=== PATIENT | female | born 1960 | race Caucasian/White ===

== ENCOUNTER 2021-04-19 01:55 | Inpatient (IN) | payer OTHER ==
[~2021-04-19] VITALS: Ht 154.9 cm; Wt 98.8 kg
[2021-04-19] VITALS (29 sets, daily range): BP systolic 84–174; BP diastolic 7–98; PULSE 56–135; TEMP 97.5–98.4
[~2021-04-19 01:55] MED LIST: NO HOME MEDICATIONS; ULTRAM50 MG PO
[2021-04-19 02:41] LABS: BASO % 0.4 % (0.0-2.0); EOS # 0.2 K/mm3 (0.0-0.7); EOS % 2.1 % (0-4.0); GRAN # 5.2 K/mm3 (1.4-6.5); GRAN % 57.8 % (42.2-75.2); HEMATOCRIT 39.8 % (37.0-47.0); HEMOGLOBIN 12.4 g/dl (12.5-16.0); LYMPH % 33.2 % (20.0-51.0); MEAN CELL VOLUME 83 fl (80.0-100.0); MEAN CORPUSCULAR HEMOGLOBIN 26 pg (27.0-31.0); MEAN CORPUSCULAR HGB CONC 31 g/dl (33.0-37.0); MEAN PLATELET VOLUME 10.7 fl (7.4-10.4); MONO # 0.6 K/mm3 (0.1-0.6); MONO % 6.3 % (1.7-9.3); PLATELET COUNT 175 K/mm3 (130-400); REDCELL DISTRIBUTION WIDTH-CV 15.6 % (11.5-14.5)
[2021-04-19 02:57] LABS: ALBUMIN 3.9 gm/dL (3.4-4.8); BILIRUBIN,TOTAL 0.4 mg/dL (0.2-1.2); CALCIUM 8.9 mg/dL (8.4-10.2); CREATININE, serum 0.82 mg/dL (0.57-1.11); POTASSIUM 4.8 mmol/L (3.5-4.5); TOTAL PROTEIN 7.7 gm/dL (6.2-8.1)
[2021-04-19 03:03] LABS: TROPONIN-I 0.011 ng/mL (0.00-0.033)
[2021-04-19 03:12] LABS: COLLECTION METHOD CLEAN CATCH
[2021-04-19 03:18] LABS: PH 6 (5-8); SQUAMOUS EPITHELIAL None Seen /hpf (0-10); URINE APPEARANCE Clear (CLEAR/HAZY); URINE BACTERIA None Seen (NONE SEEN); URINE BILIRUBIN Negative (NEGATIVE); URINE BLOOD 1+ (NEGATIVE); URINE COLOR Colorless (YELLOW); URINE GLUCOSE Negative (NEGATIVE); URINE KETONE Negative (NEGATIVE); URINE LEUKOCYTE ESTERASE Negative (NEGATIVE); URINE NITRATE Negative (NEGATIVE); URINE PROTEIN(semi-quant) 1+ (NEGATIVE); URINE RBC 0-2 /hpf (0-2); URINE UROBILINOGEN Negative (NEGATIVE); URINE WBC 0-2 /hpf (0-2)
--- NOTE | 2021-04-19 07:13 | NUR ---
PT admitted to room 317 from ED this am for SOA and chest pain, pt weaned to RA before arriving to room, was on 2L in ED. IV present in RW, locked. no further c/o chest pain, up ad ned in room. oriented to room and POC.
--- NOTE | 2021-04-19 10:22 | NUR ---
Initial visit; Patient thanked Bumper Operator for looking in on her and offering God's blessings.
--- NOTE | 2021-04-19 10:55 | NUR ---
Pt off the floor for stress test
--- NOTE | 2021-04-19 12:20 | NUR ---
Pt having echo done
--- NOTE | 2021-04-19 13:56 | NUR ---
millinery worker met with patient to discuss discharge plan. Patient reports that she lives at home with her Life Partner Claudy ([phone]). Patient reports that she is fully independent with her activities of daily living and that she doesnot utilize any medical equipment to assist with mobility. Patient also reports to no oxygen needs at home. Patient states she does have a PCP and that it is Dr. Soriano and that she utilizes [facility] for perscriptions. Patient reports that she does not have a DPOA-HC established and is not interested in one at this time. Education provided to the patient who states that her and Claudy are not but she has one child, a daughter names Angela ([phone]). Patient verbalizes that she is fine with Angela gonzalez her legal NOK. Patient states she is planning on returning home with no concerns. Discharge plan: Home
--- NOTE | 2021-04-19 14:16 | NUR ---
SEE MERGE FOR ALL MEDICATION ADMINISTRATION TIMES/DOSAGES AND INTRA/POST PROCEDURE SEDATION ASSESSMENTS.
--- NOTE | 2021-04-19 14:29 | NUR ---
Pt off the floor for heart cath
--- NOTE | 2021-04-19 14:51 | NUR ---
NOTIFIED DR. PERSAUD OF PATIENT HAVING LOW BLOOD PRESSURE AND ABNORMAL RHYTHMS ON STRESS TEST. DR. PERSAUD CAME AND ASSESSED PATIENT.
--- NOTE | 2021-04-19 16:00 | NUR ---
Pt back recently from biology laboratory assistant. She is alert and oriented, was initially drowsy when she arrived to the floor, now she is more awake. Discussed diet with her as well as plan of care now since arriving back from heart cath. Assisted pt to the chair as she stated the bed hurts her back. No pain complaints. Radial site shows no signs of bleeding. Call light within reach, will continue to monitor
--- NOTE | 2021-04-19 23:22 | NUR ---
R RADIAL CUFF REMOVED, BANDAID PUT IN PLACE, NO BLEEDING OR BRUISING NOTED, AREA SOFT TO TOUCH, PATIENT DENIES PAIN, VS STABLE, UPDATED ON PLAN OF CARE, CALL MARTINEZ W/I REACH, WILL CONTINUE TO MONITOR.
[2021-04-20] VITALS (8 sets, daily range): BP systolic 137–145; BP diastolic 51–83; PULSE 59–77; TEMP 97.8–98.7
--- NOTE | 2021-04-20 05:52 | NUR ---
Patient resting comfortably, no s/s of bleeding from R radial site, no c/o at this time.
[2021-04-20 07:09] LABS: CALCIUM 9.6 mg/dL (8.4-10.2); CREATININE, serum 0.97 mg/dL (0.57-1.11); POTASSIUM 3.7 mmol/L (3.5-4.5)
[2021-04-20 07:19] LABS: BASO # 0.1 K/mm3 (0.0-0.2); BASO % 0.6 % (0.0-2.0); EOS # 0.1 K/mm3 (0.0-0.7); GRAN # 5.1 K/mm3 (1.4-6.5); GRAN % 61.6 % (42.2-75.2); HEMATOCRIT 40.2 % (37.0-47.0); HEMOGLOBIN 12.8 g/dl (12.5-16.0); LYMPH # 2.4 K/mm3 (1.2-3.4); LYMPH % 28.6 % (20.0-51.0); MEAN CELL VOLUME 81 fl (80.0-100.0); MEAN CORPUSCULAR HEMOGLOBIN 26 pg (27-31); MEAN CORPUSCULAR HGB CONC 32 g/dl (33.0-37.0); MEAN PLATELET VOLUME 9.6 fl (7.4-10.4); MONO # 0.7 K/mm3 (0.1-0.6); MONO % 7.8 % (1.7-9.3); PLATELET COUNT 199 K/mm3 (130-400); RED BLOOD COUNT 4.94 M/mm3 (4.10-5.30); REDCELL DISTRIBUTION WIDTH-CV 15.8 % (11.5-14.5)
--- NOTE | 2021-04-20 08:57 | NUR ---
Patient sitting in the recliner upon entering the room. Only complaint is about breakfast. Patient feels fine health hess. Patient is A&Ox4, independent in the room, and has the call light w/in reach.
[2021-04-20] MEDS ORDERED: PRINIVIL10 MG PO (09:09)
[2021-04-20] MEDS ORDERED: DEMADEX10 MG PO (09:17)
--- NOTE | 2021-04-20 15:16 | NUR ---
Patient discharged. IV and telemetry were discontinued by this RN. Patient escorted out by PCT.
== END 2021-04-20 15:10 | disposition home or self-care (01) | DRG 286 ==
LOC: COL.ER 01:55 → MEDICAL 03:44
PROVIDERS: Emergency Medicine; ADMIT Student in an Organized Health Care Education/Training Program
PROC: 4A023N7 Measurement of Cardiac Sampling and Pressure, Left Heart, Percutaneous Approach (ICD-10-PCS; principal; 2021-04-19)
PROC: B2111ZZ Fluoroscopy of Multiple Coronary Arteries using Low Osmolar Contrast (ICD-10-PCS; 2021-04-19)
DX: I11.0 Hypertensive heart disease with heart failure (principal); J96.01 Acute respiratory failure with hypoxia; I50.31 Acute diastolic (congestive) heart failure; I16.0 Hypertensive urgency; D64.9 Anemia, unspecified; E87.5 Hyperkalemia; I25.10 Atherosclerotic heart disease of native coronary artery without angina pectoris; I34.0 Nonrheumatic mitral (valve) insufficiency; Z86.718 Personal history of other venous thrombosis and embolism; Z86.711 Personal history of pulmonary embolism; Z20.822 Contact with and (suspected) exposure to COVID-19; Z23 Encounter for immunization
CPT/HCPCS: 99222-AI; 99239; A9500; J1250; J1644; J1650; J1940; J2250; J3010; Q9967

== ENCOUNTER → 2021-04-25 | Outpatient (CLI) | payer OTHER ==
[~2021-04-25] MED LIST changes: +DEMADEX10 MG PO; +PRINIVIL10 MG PO
[2021-04-25 11:59] LABS: CALCIUM 9.5 mg/dL (8.4-10.2); CREATININE, serum 1.02 mg/dL (0.57-1.11); POTASSIUM 4.4 mmol/L (3.5-4.5)
== END ==
LOC: COL.LAB 10:34
PROVIDERS: Physician Assistant
DX: J81.1 Chronic pulmonary edema (principal)

== ENCOUNTER 2022-01-01 17:07 | Emergency (ER) | payer OTHER ==
[~2022-01-01] VITALS: Ht 157.5 cm; Wt 81.8 kg
[2022-01-01 17:24] VITALS: TEMP 98.2
[2022-01-01 18:08] LABS: BASO % 0.3 % (0.0-2.0); EOS # 0.2 K/mm3 (0.0-0.7); EOS % 2.4 % (0.0-4.0); GRAN # 4.5 K/mm3 (1.4-6.5); HEMATOCRIT 38.7 % (37.0-47.0); HEMOGLOBIN 12.5 g/dl (12.5-16.0); LYMPH # 2.2 K/mm3 (1.2-3.4); MEAN CELL VOLUME 81 fl (80.0-100.0); MEAN CORPUSCULAR HEMOGLOBIN 26 pg (27-31); MEAN CORPUSCULAR HGB CONC 32 g/dl (33.0-37.0); MONO # 0.5 K/mm3 (0.1-0.6); MONO % 7.2 % (1.7-9.3); PLATELET COUNT 205 K/mm3 (130-400); RED BLOOD COUNT 4.77 M/mm3 (4.10-5.30); REDCELL DISTRIBUTION WIDTH-CV 15.1 % (11.5-14.5)
[2022-01-01 18:24] LABS: ALBUMIN 3.8 gm/dL (3.4-4.8); BILIRUBIN,TOTAL 0.4 mg/dL (0.2-1.2); CALCIUM 9.4 mg/dL (8.4-10.2); CREATININE, serum 1.08 mg/dL (0.57-1.11); POTASSIUM 4.1 mmol/L (3.5-4.5); TOTAL PROTEIN 7.5 gm/dL (6.2-8.1)
[2022-01-01 18:29] LABS: TROPONIN-I 0.015 ng/mL (0.00-0.033)
[2022-01-01] MEDS ORDERED: AMOXICILLIN 8751 TAB PO (19:30)
[2022-01-01 20:25] VITALS: BP 137/75; PULSE 58
== END 2022-01-01 20:25 | disposition home or self-care (01) ==
LOC: COL.ER 17:07
PROVIDERS: Nurse Practitioner Family
DX: I16.0 Hypertensive urgency (principal); H65.191 Other acute nonsuppurative otitis media, right ear; H60.91 Unspecified otitis externa, right ear; K02.9 Dental caries, unspecified; Z88.1 Allergy status to other antibiotic agents
CPT/HCPCS: J7040

== ENCOUNTER 2023-09-16 19:51 | Emergency (ER) | payer OTHER ==
[~2023-09-16] VITALS: Ht 154.9 cm; Wt 84.1 kg
[~2023-09-16 19:51] MED LIST changes: +AMOXICILLIN 8751 TAB PO; +PRINIVIL40 MG PO
[2023-09-16 19:58] VITALS: TEMP 97.9
[2023-09-16 20:43] VITALS: BP 181/89; PULSE 68
== END 2023-09-16 20:48 | disposition home or self-care (01) ==
LOC: COL.ER 19:51
DX: S61.210A Laceration without foreign body of right index finger without damage to nail, initial encounter (principal); Z23 Encounter for immunization; W26.0XXA Contact with knife, initial encounter